=== PATIENT | female | born 1945 | race Caucasian/White ===

== ENCOUNTER 2021-12-09 10:40 | Inpatient (IN) ==
[2021-12-09 11:51] LABS: Basophils # (auto) 0.04 K/uL (0-0.2); Basophils % (auto) 0.4 %; Eosinophils # (auto) 0.04 K/uL (0-0.50); Eosinophils % (auto) 0.4 %; Hematocrit (blood only) 41.3 % (34.1-44.9); Hemoglobin 14.3 g/dl (12.0-16.0); Immature Granulocytes # (auto) 0.03 K/uL (0.00-0.02); Immature Granulocytes % (auto) 0.3 %; Lymphocytes # (auto) 1.17 K/uL (1.2-3.4); Lymphocytes % (auto) 10.3 %; Mean Corpuscular Hemoglobin 31.9 pg (25.0-34.0); Mean Corpuscular Hgb Conc 34.6 g/dL (32.0-36.0); Mean Corpuscular Volume 92.2 fL (80.0-100.0); Mean Platelet Volume 10.2 fL (9.4-12.3); Monocytes # (auto) 0.68 K/uL (0.24-0.82); Neutrophils # (auto) 9.38 K/uL (1.4-6.5); Neutrophils % (auto) 82.6 %; Platelet Count 303 K/uL (130-400); RDW Coefficient of Variation 12.1 % (11.5-14.5); RDW Standard Deviation 41.2 fL (36.4-46.3); Red Blood Count 4.48 M/uL (3.93-5.22); White Blood Count 11.34 K/ul (4.8-10.8)
[2021-12-09 12:07] LABS: INR 1.1 (0.9-1.1); Partial Thromboplastin Ratio 1.1; Partial Thromboplastin Time 29.1 Seconds (21.0-31.0); Prothrombin Time 11.9 Seconds (9.0-12.0)
[2021-12-09 12:12] LABS: Albumin Globulin Ratio 1.3 (0.9-2); Albumin Level 4.1 gm/dl (3.4-5.0); BUN Creatinine Ratio 18.7 (10-20); Calcium 9.8 mg/dl (8.5-10.1); Creatinine Clr Calc Pharmacy 61.7 ml/min; Est GFR (African American) 89.1 ml/min; Est GFR (Non-African American) 76.9 ml/min; Globulin 3.2 gm/dl (2.5-4.0); Magnesium 1.6 mg/dl (1.7-2.4); Potassium 3.9 mmol/L (3.5-5.1); Total Protein 7.3 gm/dl (6.0-8.3)
--- NOTE | 2021-12-09 12:44 | Emergency Department Note ---
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 She does follow-up with Dr. Cespedes and she said the start around 2 weeks ago she was started on clindamycin and was getting better and then it started getting worse they started on it more clindamycin it is gotten increasingly red and warm and they sent her to the ER no fever at home but she has had some chills. Denies nausea no chest pain no injury no numbness or weakness. She says she gets this about 4 times a year sometimes she has to be admitted to the hospital she does have several antibiotic allergies including sulfa, cephalosporins and penicillin. Home Medications Medication Instructions Recorded Confirmed Type amlodipine 5 mg tablet 5 mg PO DAILY 12/09/21 12/09/21 History ascorbic acid (vitamin C) 500 mg 500 mg PO DAILY 12/09/21 12/09/21 History tablet (Vitamin C) cholecalciferol (vitamin D3) 10 10 mcg PO DAILY 12/09/21 12/09/21 History mcg (400 unit) capsule (Vitamin D3) clindamycin HCl 300 mg capsule 300 mg PO QID 12/09/21 12/09/21 History colestipol 1 gram tablet 2 g PO BID 12/09/21 12/09/21 History meclizine 25 mg tablet 25 mg PO TID PRN Dizziness 12/09/21 12/09/21 History naproxen 500 mg tablet 500 mg PO BID 12/09/21 12/09/21 History omeprazole 20 mg capsule,delayed 20 mg PO BID 12/09/21 12/09/21 History release rosuvastatin 5 mg tablet 5 mg PO DAILY 12/09/21 12/09/21 History Allergies Allergy/AdvReac Type Severity Reaction Status Date / Time Sulfa (Sulfonamide Allergy Mild Unknown rxn Verified 05/24/10 07:39 Antibiotics) Cephalosporins Allergy Unknown Verified 03/28/09 04:25 Penicillins Allergy Unknown Verified 03/28/09 04:25 oxycodone AdvReac Mild NAUSEA Verified 03/28/09 04:25 Past Med/Surg History Medical History (Updated 12/09/21 @ 16:04 by Everett Venegas MD) Breast cancer Chronic acquired lymphedema Dyslipidemia GERD (gastroesophageal reflux disease) HTN (hypertension) IBS (irritable bowel syndrome) Vertigo Surgical History (Updated 12/09/21 @ 14:16 by Christina Patterson PA-C) H/O total mastectomy of left breast History of cholecystectomy History of lymph node excision History of reconstruction of both breasts History of total left knee replacement History of tubal ligation Hx of total mastectomy of right breast Family History (Updated 12/09/21 @ 14:18 by Christina Patterson PA-C) Aunt Breast cancer Other Coronary heart disease Social History (Updated 12/09/21 @ 14:18 by Christina Patterson PA-C) Smoking Status: Former smoker Hx Alcohol Use: Yes Alcohol type: wine Alcohol Intake Frequency: Monthly or Less Hx Substance Use: No Preferred Language: Korean Feels Safe at Home: Yes Immunizations: Past medical historybreast cancer she had a bilateral mastectomy and chemo. She had lymph node dissections as well. She has been in remission for 27 years. Since then she has had problems with edema and cellulitis in her right upper extremity. Increased cholesterol. Denies diabetes or cardiac disease or any blood thinner use Review of Systems A total of 10 systems reviewed and were otherwise negative Physical Exam Vital Signs Vital Signs - 24 hr 12/09/21 10:52 12/09/21 13:52 12/09/21 13:52 Temperature 36.5 C Temperature Source Oral Pulse Rate 93 H Pulse Rate [Right Finger] 81 Pulse Rhythm Regular Pulse Rhythm [Right Finger] Regular Pulse Strength Normal Pulse Strength [Right Finger] Normal Respiratory Rate 18 18 Respiratory Effort / Characteristics Non-Labored Spontaneous Non-Labored Respiratory Depth Normal Normal Respiratory Pattern Regular Regular Blood Pressure 158/79 H Blood Pressure [Right Arm] 125/64 Blood Pressure Mean 105 Blood Pressure Mean [Right Arm] 84 Blood Pressure Position Sitting Blood Pressure Position [Right Arm] Lying Pulse Oximetry 98 97 Oxygen Delivery Method Room Air Room Air Room Air Sepsis Recent Fever Within 48 Hours No Sepsis New/Unexplained Change in Mental Status No Sepsis Action Taken by Nursing No Action Required 12/09/21 13:52 12/09/21 15:51 Temperature Temperature Source Pulse Rate Pulse Rate [Right Finger] 84 Pulse Rhythm Pulse Rhythm [Right Finger] Pulse Strength Pulse Strength [Right Finger] Respiratory Rate 18 Respiratory Effort / Characteristics Respiratory Depth Respiratory Pattern Blood Pressure Blood Pressure [Right Arm] 130/69 Blood Pressure Mean Blood Pressure Mean [Right Arm] 89 Blood Pressure Position Blood Pressure Position [Right Arm] Sitting Pulse Oximetry 98 Oxygen Delivery Method Room Air Sepsis Recent Fever Within 48 Hours Sepsis New/Unexplained Change in Mental Status Sepsis Action Taken by Nursing General: Well developed well nourished [id number] middle-aged female who appears in no acute distress, breathing comfortably on room air. Normal speech HEENT: Normal cephalic atraumatic. Pupils are equal round and reactive to light. Extraocular movements are intact. Oropharynx is pink with moist mucous membranes. No swelling of the mouth lips or tongue. Neck: Supple with a midline trachea. No meningeal signs or stiffness, no JVD or bruits. No Stridor. Chest: Clear to auscultation bilaterally. No wheezes or rhonchi. No increased work of breathing. Heart: Regular rate and rhythm without murmurs or gallops. Abdomen: Soft nontender, nondistended without rebound guarding or rigidity. Extremities: Lower extremities have no cyanosis clubbing or edema. No calf tenderness or assymetry. In the upper extremities her right arm is red and swollen compared to the left it is diffuse starting of the hand all the way up to almost the shoulder. It is mildly warm as well. No crepitus. Normal motor and sensation Spine/Back. Non tender to palpation. No CVA tenderness Skin: Good turgor without rashes. Neurologic exam: Cranial nerves two through 12 are intact. Motor and sensation are intact and symmetrical throughout. Course Administered Medications Enoxaparin Sodium (Enoxaparin Inj 40 Mg/0.4 Ml Syr) 40 mg SQ Q24H [facility] Stop: 01/08/22 13:59 Last Admin: 12/09/21 15:00 Dose: 40 mg Documented By: EVIE Magnesium Sulfate/Dextrose (Magnesium Sulfate / D5w) 1 gm in 100 mls @ 50 mls/hr IV ONE ONE Stop: 12/09/21 16:33 Last Admin: 12/09/21 15:00 Dose: 50 mls/hr Documented By: EVIE Discontinued Medications Amlodipine Besylate (Amlodipine Besylate 5 Mg Tab) 5 mg PO NOW ONE Stop: 12/09/21 14:01 Last Admin: 12/09/21 15:00 Dose: 5 mg Documented By: EVIE Vancomycin HCl 1,500 mg/ (Sodium Chloride) 530 mls @ 200 mls/hr IV NOW STA Stop: 12/09/21 15:41 Last Admin: 12/09/21 13:46 Dose: 200 mls/hr Documented By: CALEB Medical Decision Making Differential Diagnosis Cellulitis, sepsis, failed outpatient therapy, complication related to breast cancer, DVT, electrolyte or metabolic abnormality, COVID Medical Records Attestation: I reviewed the patient's medical records. Home Medications Current Medication List: was personally reviewed by me Laboratory Data Attestation: I reviewed the patient's lab results. Result diagrams: 12/09/21 11:27 12/09/21 11:27 Lab Results 12/09/21 12/09/21 12/09/21 Range/Units 11:27 11:27 11:27 WBC 11.34 H (4.8-10.8) K/ul RBC 4.48 (3.93-5.22) M/uL Hgb 14.3 (12.0-16.0) g/dl Hct 41.3 (34.1-44.9) % MCV 92.2 (80.0-100.0) fL MCH 31.9 (25.0-34.0) pg MCHC 34.6 (32.0-36.0) g/dL RDW Std Deviation 41.2 (36.4-46.3) fL RDW Coeff of Ernestina 12.1 (11.5-14.5) % Plt Count 303 (130-400) K/uL MPV 10.2 (9.4-12.3) fL Immature Gran % (Auto) 0.3 % Neut % (Auto) 82.6 % Lymph % (Auto) 10.3 % [place] % (Auto) 6.0 % Eos % (Auto) 0.4 % Baso % (Auto) 0.4 % Neut # (Auto) 9.38 H (1.4-6.5) K/uL Lymph # (Auto) 1.17 L (1.2-3.4) K/uL [place] # (Auto) 0.68 (0.24-0.82) K/uL Eos # (Auto) 0.04 (0-0.50) K/uL Baso # (Auto) 0.04 (0-0.2) K/uL Immature Gran # (Auto) 0.03 H (0.00-0.02) K/uL PT 11.9 (9.0-12.0) Seconds INR 1.1 (0.9-1.1) APTT 29.1 (21.0-31.0) Seconds PTT Ratio 1.1 Sodium 138 (136-145) mmol/L Potassium 3.9 (3.5-5.1) mmol/L Chloride 106 (98-107) mmol/L Carbon Dioxide 24 (21-32) mmol/L Anion Gap 8 (3-11) BUN 14 (6-23) mg/dl Creatinine 0.75 (0.6-1.2) mg/dl Est Cr Clr Drug Dosing 61.7 ml/min Est GFR ( Amer) 89.1 ml/min Est GFR (Non-Af Amer) 76.9 ml/min BUN/Creatinine Ratio 18.7 (10-20) Glucose 93 (70-99(Fasting)) mg/dl Lactate (0.4-2.0) mmol/L Calcium 9.8 (8.5-10.1) mg/dl Magnesium 1.6 L (1.7-2.4) mg/dl Total Bilirubin 1.0 (0.2-1.0) mg/dl AST 12 L (13-39) U/L ALT 12 (7-52) U/L Alkaline Phosphatase 60 (34-104) U/L Troponin I High Sens (0-14) pg/ml Total Protein 7.3 (6.0-8.3) gm/dl Albumin 4.1 (3.4-5.0) gm/dl Globulin 3.2 (2.5-4.0) gm/dl Albumin/Globulin Ratio 1.3 (0.9-2) Procalcitonin (0-0.5) ng/ml SARS-CoV-2, RNA, NAAT (NEGATIVE) 12/09/21 12/09/21 12/09/21 Range/Units 11:27 11:27 12:58 WBC (4.8-10.8) K/ul RBC (3.93-5.22) M/uL Hgb (12.0-16.0) g/dl Hct (34.1-44.9) % MCV (80.0-100.0) fL MCH (25.0-34.0) pg MCHC (32.0-36.0) g/dL RDW Std Deviation (36.4-46.3) fL RDW Coeff of Ernestina (11.5-14.5) % Plt Count (130-400) K/uL MPV (9.4-12.3) fL Immature Gran % (Auto) % Neut % (Auto) % Lymph % (Auto) % [place] % (Auto) % Eos % (Auto) % Baso % (Auto) % Neut # (Auto) (1.4-6.5) K/uL Lymph # (Auto) (1.2-3.4) K/uL [place] # (Auto) (0.24-0.82) K/uL Eos # (Auto) (0-0.50) K/uL Baso # (Auto) (0-0.2) K/uL Immature Gran # (Auto) (0.00-0.02) K/uL PT (9.0-12.0) Seconds INR (0.9-1.1) APTT (21.0-31.0) Seconds PTT Ratio Sodium (136-145) mmol/L Potassium (3.5-5.1) mmol/L Chloride (98-107) mmol/L Carbon Dioxide (21-32) mmol/L Anion Gap (3-11) BUN (6-23) mg/dl Creatinine (0.6-1.2) mg/dl Est Cr Clr Drug Dosing ml/min Est GFR ( Amer) ml/min Est GFR (Non-Af Amer) ml/min BUN/Creatinine Ratio (10-20) Glucose (70-99(Fasting)) mg/dl Lactate 1.1 (0.4-2.0) mmol/L Calcium (8.5-10.1) mg/dl Magnesium (1.7-2.4) mg/dl Total Bilirubin (0.2-1.0) mg/dl AST (13-39) U/L ALT (7-52) U/L Alkaline Phosphatase (34-104) U/L Troponin I High Sens 2.5 (0-14) pg/ml Total Protein (6.0-8.3) gm/dl Albumin (3.4-5.0) gm/dl Globulin (2.5-4.0) gm/dl Albumin/Globulin Ratio (0.9-2) Procalcitonin < 0.05 (0-0.5) ng/ml SARS-CoV-2, RNA, NAAT (NEGATIVE) 12/09/21 Range/Units 13:50 WBC (4.8-10.8) K/ul RBC (3.93-5.22) M/uL Hgb (12.0-16.0) g/dl Hct (34.1-44.9) % MCV (80.0-100.0) fL MCH (25.0-34.0) pg MCHC (32.0-36.0) g/dL RDW Std Deviation (36.4-46.3) fL RDW Coeff of Ernestina (11.5-14.5) % Plt Count (130-400) K/uL MPV (9.4-12.3) fL Immature Gran % (Auto) % Neut % (Auto) % Lymph % (Auto) % [place] % (Auto) % Eos % (Auto) % Baso % (Auto) % Neut # (Auto) (1.4-6.5) K/uL Lymph # (Auto) (1.2-3.4) K/uL [place] # (Auto) (0.24-0.82) K/uL Eos # (Auto) (0-0.50) K/uL Baso # (Auto) (0-0.2) K/uL Immature Gran # (Auto) (0.00-0.02) K/uL PT (9.0-12.0) Seconds INR (0.9-1.1) APTT (21.0-31.0) Seconds PTT Ratio Sodium (136-145) mmol/L Potassium (3.5-5.1) mmol/L Chloride (98-107) mmol/L Carbon Dioxide (21-32) mmol/L Anion Gap (3-11) BUN (6-23) mg/dl Creatinine (0.6-1.2) mg/dl Est Cr Clr Drug Dosing ml/min Est GFR ( Amer) ml/min Est GFR (Non-Af Amer) ml/min BUN/Creatinine Ratio (10-20) Glucose (70-99(Fasting)) mg/dl Lactate (0.4-2.0) mmol/L Calcium (8.5-10.1) mg/dl Magnesium (1.7-2.4) mg/dl Total Bilirubin (0.2-1.0) mg/dl AST (13-39) U/L ALT (7-52) U/L Alkaline Phosphatase (34-104) U/L Troponin I High Sens (0-14) pg/ml Total Protein (6.0-8.3) gm/dl Albumin (3.4-5.0) gm/dl Globulin (2.5-4.0) gm/dl Albumin/Globulin Ratio (0.9-2) Procalcitonin (0-0.5) ng/ml SARS-CoV-2, RNA, NAAT NEGATIVE (NEGATIVE) Imaging Data Radiologist's Impression: Venous Doppler Study 12/09/21 13:45 ULTRASOUND RIGHT UPPER EXTREMITY VENOUS CLINICAL HISTORY: Right upper extremity erythema. Lymphedema. COMPARISON STUDY: Right upper extremity venous ultrasound dated 05/20/2012. TECHNIQUE: Real-time, grayscale, and color Doppler sonography of the deep veins of the right upper extremity is performed. Compression and augmentation were utilized. FINDINGS: There is no sonographic evidence of deep venous thrombosis identified in the right upper extremity. The right internal jugular, axillary, and brachial veins are patent and normally compressible. Normal venous waveforms and augmentation are seen within the right subclavian vein. The cephalic and basilic veins are clear. The visualized radial and ulnar veins are patent. A mildly enlarged right supraclavicular lymph node measures 1.6 x 1.2 x 1.5 cm. IMPRESSION: 1. There is no sonographic evidence of deep venous thrombosis identified in the right upper extremity. 2. There is a mildly enlarged right supraclavicular lymph node. This is indeterminate but similar to the 2013 examination. ACT 112: Negative or not required by law. Electronically signed by: Trip Barnes M.D. 12/09/2021 3:58 PM ECG Data Attestation: I personally reviewed and interpreted this ECG as follows: Indication: + weakness Rate (beats per minute): 93 Rhythm: + normal sinus ECG Intervals/blocks: + Normal QRS, + Normal QT and + Normal NH ECG [place]: + Normal ECG ST segments: + Normal ST segments ECG Findings: no PACs or no PVCs Comparison ECG Date: from (06/05/2017) Change: no significant change MDM Narrative This patient comes in as described above. She has recurrent cellulitis that has failed outpatient therapy her right arm is red and swollen. She is afebrile here but has had some chills at home. Blood cultures were obtained. Her initial white count and procalcitonin are significantly elevated she has no significant lecture light or metabolic abnormalities. EKG shows no ischemic changes or ectopy. She was reassessed frequently. She was started on IV antibiotics. Our ED pharmacist Ole has reviewed the patient and her allergies and previous medications and we have opted to give her vancomycin. Her lactic a giovanni is not elevated. Her COVID testing was negative. I have consulted the [facility] Hospitalist to see the patient in ER for further treatment and evaluation IV antibiotics. Continuous shelter monitor: Orders placed in EMR for continuous heart monitor. Upon my interpretation patient noted to be normal sinus rhythm with a rate of 80. Impression & Plan Cellulitis of right upper extremity, Hypomagnesemia, Chronic acquired lymphedema, Lab test negative for COVID-19 virus Discharge Plan Visit Data Chief Complaint: Arm Pain Stated Complaint: CELLULITIS R ARM ED Provider: Everett Venegas Discharge Problem: Cellulitis of right upper extremity, Hypomagnesemia, Chronic acquired lymphedema, Lab test negative for COVID-19 virus Forms Stand Alone Forms: My [facility] Prescriptions Prescriptions: No Action clindamycin HCl 300 mg capsule 300 mg PO QID amlodipine 5 mg tablet 5 mg PO DAILY ascorbic acid (vitamin C) [Vitamin C] 500 mg Tablet 500 mg PO DAILY meclizine 25 mg tablet 25 mg PO TID PRN (Reason: Dizziness) omeprazole 20 mg capsule,delayed release(DR/EC) 20 mg PO BID colestipol 1 gram tablet 2 g PO BID naproxen 500 mg tablet 500 mg PO BID cholecalciferol (vitamin D3) [Vitamin D3] 10 mcg (400 unit) Capsule 10 mcg PO DAILY rosuvastatin 5 mg tablet 5 mg PO DAILY Referrals Referrals: Rogelio Cespedes DO [Primary Care Provider] -
[2021-12-09] MEDS ORDERED: VANCOMYCIN HCL 1,500 MG in SODIUM CHLORIDE 0.9% 500 ML IV STA (13:03)
--- NOTE | 2021-12-09 13:45 | Electrocardiogram Report ---
Test Reason : Blood Pressure : / mmHG Vent. Rate : 093 BPM Atrial Rate : 093 BPM P-R Int : 172 ms QRS Dur : 072 ms QT Int : 368 ms P-R-T Axes : 057 045 037 degrees QTc Int : 457 ms Normal sinus rhythm Normal ECG When compared with ECG of 05-JUN-2014 16:04, No significant change was found Confirmed by Pan Davis ([id number]) on 12/09/2021 1:44:57 PM Referred By: Confirmed By:Pan Davis
--- NOTE | 2021-12-09 13:49 | History & Physical Report ---
Date of Service December 09, 2021 Assessment & Plan (1) Cellulitis of right upper extremity: Plan: Patient is 76 y/o F with PMH HTN, dyslipidemia, GERD, IBS, breast cancer s/p chemotherapy, mastectomy, bilateral axilla lymph node excision in 1995, chronic bilateral upper extremity lymphedema presented to ER with c/o RUE erythema x 2 weeks initial improvement with Clindamycin however last night chills and entire RUE erythema and warmth. No known h/o MRSA In ER afebrile, vitals stable. WBC:11. Normal lactate and procalcitonin. In ER was started on vancomycin blood cultures pending RUE venous doppler pending ?cellulitis vs stasis dermatitis with chronic lymphedema as patient without significant tenderness 14 day course Clindamycin with initial improvement then reported onset of increased erythema and chills last night. With recent antibiotic use and allergy profile will continue vancomycin and monitor CBC, BMP in am (2) Hypomagnesemia: Plan: magnesium: 1.6 Replace and monitor (3) HTN (hypertension): Plan: BP in ER elevated. Missed today's home BP meds Continue amlodipine (4) Dyslipidemia: Plan: Continue rosuvastatin (5) Breast cancer: (6) Chronic acquired lymphedema: Plan: 1995. S/P chemo, bilateral mastectomy, bilateral axillary lymph node excision Chronic BUE lymphedema Reports tried compression wraps and lymphedema pump in past with minimal relief (7) IBS (irritable bowel syndrome): Plan: Continue colestipol (8) GERD (gastroesophageal reflux disease): Plan: Continue PPI DVT Prophylaxis Lovenox SQ Full Code as per discussion with pt Follows with Dr Cespedes for routine care Pt was seen and care coordinated with Dr Valles. See addendum History of Present Illness Chief Complaint: Right arm redness Primary Care Provider: Rogelio Cespedes, Patient is 76 y/o F with PMH HTN, dyslipidemia, GERD, IBS, breast cancer s/p chemotherapy, mastectomy, bilateral axilla lymphnode excision in 1995, chronic bilateral upper extremity lymphedema presented to ER with c/o RUE erythema. She reports history recurrent cellulitis to RUE. Reports erythema to RUE in March and May 2021 and was treated with Clindamycin with relief. Patient states 2 weeks ago noticed right upper arm erythema and started Clindamycin and completed 7 day course with improvement with only a very small area of erythema remaining to right upper arm. Her PCP called in another course of Clindamycin which she started on 12/02/21. She felt symptoms were improving however last night started with chills. Did not take temperature. Noticed entire right arm erythema. Baseline edema and denies any increased edema. Has chronic "heaviness" sensation of RUE but denies any significant discomfort. Denies any open areas, known injury or trauma or discharge from area. She did notice her right thumb had crack in skin today, she is unsure when this occurred and doesn't recall cutting herself. Her skin is very dry. Denies any known history MRSA. Denies history DVT. Denies diaphoresis, N/V/D/C, HERR, dizziness, syncope, vision changes, neck pain, CP, SOB, palpitations, cough, sore throat, choking, otalgia, rhinorrhea, abdominal pain, paresthesias, weakness, extremity weakness, other rashes, urinary symptoms. In ER afebrile, vitals stable. Mild leukocytosis. Was started on vancomycin. Allergies Allergy/AdvReac Type Severity Reaction Status Date / Time Sulfa (Sulfonamide Allergy Mild Unknown rxn Verified 05/24/10 07:39 Antibiotics) Cephalosporins Allergy Unknown Verified 03/28/09 04:25 Penicillins Allergy Unknown Verified 03/28/09 04:25 oxycodone AdvReac Mild NAUSEA Verified 03/28/09 04:25 Home Medications Medication Instructions Recorded Confirmed Type amlodipine 5 mg tablet 5 mg PO DAILY 12/09/21 12/09/21 History ascorbic acid (vitamin C) 500 mg 500 mg PO DAILY 12/09/21 12/09/21 History tablet (Vitamin C) cholecalciferol (vitamin D3) 10 10 mcg PO DAILY 12/09/21 12/09/21 History mcg (400 unit) capsule (Vitamin D3) clindamycin HCl 300 mg capsule 300 mg PO QID 12/09/21 12/09/21 History colestipol 1 gram tablet 2 g PO BID 12/09/21 12/09/21 History meclizine 25 mg tablet 25 mg PO TID PRN Dizziness 12/09/21 12/09/21 History naproxen 500 mg tablet 500 mg PO BID 12/09/21 12/09/21 History omeprazole 20 mg capsule,delayed 20 mg PO BID 12/09/21 12/09/21 History release rosuvastatin 5 mg tablet 5 mg PO DAILY 12/09/21 12/09/21 History Past Med/Surg History Medical History (Updated 12/09/21 @ 16:04 by Everett Venegas MD) Breast cancer Chronic acquired lymphedema Dyslipidemia GERD (gastroesophageal reflux disease) HTN (hypertension) IBS (irritable bowel syndrome) Vertigo Surgical History (Updated 12/09/21 @ 14:16 by Christina Patterson PA-C) H/O total mastectomy of left breast History of cholecystectomy History of lymph node excision History of reconstruction of both breasts History of total left knee replacement History of tubal ligation Hx of total mastectomy of right breast Family History (Updated 12/09/21 @ 14:18 by Christina Patterson PA-C) Aunt Breast cancer Other Coronary heart disease Social History (Updated 12/09/21 @ 14:18 by Christina Patterson PA-C) Smoking Status: Former smoker Hx Alcohol Use: Yes Alcohol type: wine Alcohol Intake Frequency: Monthly or Less Hx Substance Use: No Preferred Language: Khmer Hatchery Worker Required: No Beliefs That Will Affect Care: None Current Living Situation: Spouse Other Information That Helps Us Care for You: No Feels Safe at Home: Yes Assistive Devices: Glasses and Hearing Aid - Bilateral Review of Systems Review of Systems: All systems reviewed & are unremarkable except as noted in HPI & below Physical Exam Physical Exam: General: no distress, overweight Head: normocephalic, atraumatic Eyes: conjunctiva non-injected, anicteric ENT: normal inspection external ears, nose, mucous membranes moist Neck: supple, trachea midline Lungs: clear, no respiratory distress, no wheezing/rhonchi/rales CV: RRR, no murmur, no pretibial edema Abd: protuberant, normal BS, soft, non-tender Ext: no cyanosis, no calf tenderness; Bilateral upper extremities with chronic lymphedema. RUE: +diffuse dry skin, +erythema from proximal arm extending to wrist, +warmth to proximal arm, no significant tenderness to palpation. right thumb with noted dry skin with small fissure without discharge Neuro: A&O x 3, no focal deficits noted, normal affect Skin: as above in extremities, otherwise warm, dry Results & Data Results & Data ([facility]) Vital Signs (Past 12 Hours) Vital Signs Temp Pulse Resp BP Pulse Ox O2 Del Method 12/09/21 10:52 36.5 C 93 H 18 158/79 H 98 Room Air Laboratory Results Short CBC 12/09/21 Range/Units 11:27 WBC 11.34 H (4.8-10.8) K/ul Hgb 14.3 (12.0-16.0) g/dl Hct 41.3 (34.1-44.9) % Plt Count 303 (130-400) K/uL BMP 12/09/21 11:27 Sodium 138 Potassium 3.9 Chloride 106 Carbon Dioxide 24 BUN 14 Creatinine 0.75 Glucose 93 Calcium 9.8 Liver Function 12/09/21 Range/Units 11:27 Total Bilirubin 1.0 (0.2-1.0) mg/dl AST 12 L (13-39) U/L ALT 12 (7-52) U/L Alkaline Phosphatase 60 (34-104) U/L Albumin 4.1 (3.4-5.0) gm/dl Supervising Physician Co-Signing Physician Notes 76-year-old female with history of breast cancer status postchemotherapy and mastectomy with chronic right upper extremity lymphedema. She had a good resolution of erythema except 1 strand of pink around her shoulder after the first course of clindamycin. Then did well with the second course of clindamycin. However, yesterday she had a flareup of bright red skin and swelling and warmth as well as chills suggestive of repeat cellulitis infection. She does have a scrape that is small at the fingertip on her right hand and reports dry skin. She does report chewing on this dry skin. Overall does not have any sepsis and looks good clinically. Right upper extremity as described above with redness that extends to just distal to the deltoid muscle. Erythema and swelling is circumferential around the entire right upper extremity. Hand is not swollen but is also affected with some redness. There is no area of fluctuance. Heart and lung exam is normal. Patient is ambulating around the room. Work-up including CBC reveals a white blood cell count of 11 K with left shift. Coags and BMP are normal. Magnesium 1.6 is being replaced. Procalcitonin is negative and COVID is negative. Lactate is 1.1. She underwent a venous Doppler of the right upper extremity with no sonographic evidence of DVT and a mild right supraclavicular lymph node which is expected in this situation. Agree with management plan of starting vancomycin IV with her allergy profile. Will monitor for clinical response and transition to oral therapy in the next couple of days. DO Hai
[2021-12-09] MEDS ORDERED: amLODIPine BESYLATE 5 MG TAB PO ONE (14:00)
[2021-12-09] MEDS ORDERED: MAGNESIUM SULFATE / D5W 1 GM/100 ML BAG IV ONE (14:34)
[2021-12-09] MEDS: ENOXAPARIN INJ 40 MG/0.4 ML SYR SQ SCH (15:00)
--- NOTE | 2021-12-09 15:59 | Ultrasound Report ---
ULTRASOUND RIGHT UPPER EXTREMITY VENOUS CLINICAL HISTORY: Right upper extremity erythema. Lymphedema. COMPARISON STUDY: Right upper extremity venous ultrasound dated 05/20/2012. TECHNIQUE: Real-time, grayscale, and color Doppler sonography of the deep veins of the right upper ex tremity is performed. Compression and augmentation were utilized. FINDINGS: There is no sonographic evidence of deep venous thrombosis identified in the right upper ex tremity. The right internal jugular, axillary, and brachial veins are patent and normally compressibl e. Normal venous waveforms and augmentation are seen within the right subclavian vein. The cephalic a nd basilic veins are clear. The visualized radial and ulnar veins are patent. A mildly enlarged right supraclavicular lymph node measures 1.6 x 1.2 x 1.5 cm. IMPRESSION: 1. There is no sonographic evidence of deep venous thrombosis identified in the right upper extremity . 2. There is a mildly enlarged right supraclavicular lymph node. This is indeterminate but similar to the 2013 examination. ACT 112: Negative or not required by law. Electronically signed by: Trip Barnes M.D. 12/09/2021 3:58 PM
[2021-12-09] MEDS ORDERED: ACETAMINOPHEN 325 MG TAB PO PRN (17:00)
[2021-12-09] MEDS ORDERED: VANCOMYCIN CONSULT ACTIVE PRN (17:00)
[2021-12-09] MEDS ORDERED: ONDANSETRON INJ 2 MG/ML 2 ML VIAL IV PRN (17:00)
[2021-12-09] MEDS ORDERED: MECLIZINE HCL 25 MG TAB PO PRN (17:00)
[2021-12-09] MEDS ORDERED: VANCOMYCIN HCL 1,250 MG in SODIUM CHLORIDE 0.9% 500 ML IV SCH (17:00)
[2021-12-09] MEDS: COLESTIPOL HCL 1 GM TAB PO SCH (21:55)
[2021-12-09] MEDS: PANTOprazole 40 MG TAB PO SCH (21:55)
[2021-12-09] MEDS: NAPROXEN 250 MG TAB PO SCH (21:57)
[2021-12-10] MEDS: VANCOMYCIN HCL 750 MG in SODIUM CHLORIDE 0.9% 250 ML IV SCH ×2 (00:36→12:24)
[2021-12-10 07:35] LABS: Appearance Urine Clear (Clear); Bacteria Urine Automated Negative (Negative); Bilirubin Urine Negative (Negative); Blood Urine Negative (Negative); Color Urine Yellow; Epithelial Cell Urine Auto >30 /lpf (0-5); Glucose Urine UA Negative (Negative); Ketones Urine Negative (Negative); Leukocyte Esterase Urine Trace (Negative); Nitrite Urine Negative (Negative); Protein Urine Negative (Negative); RBC Urine Automated 0-4 /hpf (0-4); Specific Gravity Urine 1.014 (1.000-1.030); Urobilinogen Urine Negative (Negative)
[2021-12-10] MEDS: NAPROXEN 250 MG TAB PO SCH ×2 (08:18→20:19)
[2021-12-10] MEDS: ROSUVASTATIN CALCIUM 5 MG TAB PO SCH (08:18)
[2021-12-10] MEDS: PANTOprazole 40 MG TAB PO SCH ×2 (08:19→20:20)
[2021-12-10] MEDS: amLODIPine BESYLATE 5 MG TAB PO SCH (08:19)
[2021-12-10 08:36] LABS: BUN Creatinine Ratio 22.2 (10-20); Calcium 9.7 mg/dl (8.5-10.1); Creatinine Clr Calc Pharmacy 73.5 ml/min; Est GFR (African American) 100.3 ml/min; Est GFR (Non-African American) 86.5 ml/min; Magnesium 1.7 mg/dl (1.7-2.4)
[2021-12-10 09:53] LABS: Basophils # (auto) 0.05 K/uL (0-0.2); Basophils % (auto) 0.8 %; Eosinophils % (auto) 3.2 %; Hematocrit (blood only) 39.9 % (34.1-44.9); Hemoglobin 13.6 g/dl (12.0-16.0); Immature Granulocytes # (auto) 0.02 K/uL (0.00-0.02); Immature Granulocytes % (auto) 0.3 %; Lymphocytes # (auto) 1.24 K/uL (1.2-3.4); Lymphocytes % (auto) 19.7 %; Mean Corpuscular Hemoglobin 31.9 pg (25.0-34.0); Mean Corpuscular Hgb Conc 34.1 g/dL (32.0-36.0); Mean Corpuscular Volume 93.7 fL (80.0-100.0); Mean Platelet Volume 10.7 fL (9.4-12.3); Monocytes # (auto) 0.57 K/uL (0.24-0.82); Monocytes % (auto) 9.1 %; Neutrophils # (auto) 4.21 K/uL (1.4-6.5); Neutrophils % (auto) 66.9 %; Platelet Count 270 K/uL (130-400); RDW Coefficient of Variation 12.2 % (11.5-14.5); RDW Standard Deviation 42.2 fL (36.4-46.3); Red Blood Count 4.26 M/uL (3.93-5.22); White Blood Count 6.29 K/ul (4.8-10.8)
[2021-12-10] MEDS: COLESTIPOL HCL 1 GM TAB PO SCH ×2 (11:50→20:20)
--- NOTE | 2021-12-10 12:49 | Pharmacy Report ---
Pharmacy PK ABX Note - Date of Service December 10, 2021 - Assessment and Plan Assessment * Ms Snyder is a 76 year old F receiving Vancomycin for treatment of RUE cellulitis. * PMH is significant for hx of breast CA s/p chemo/mastectomy/bilateral axilla lymph node excision (1995), chronic b/l UE lymphedema * Pt completed 14 days of therapy with Clindamycin as an outpatient. Initially, she had some improvement, however she reports onset of increased erythema and chills, for which she presented to the ER. * Blood cx pending. PCT unremarkable. Plan Vancomycin * Loading dose: 1500 mg IV x 1 * Maintenance dose: 750 mg IV every 12 hours * Regimen is predicted to achieve target AUC/EARL of 400-600 mg/L.hr * Random level ordered for tomorrow morning. Pharmacy will continue to follow and will adjust dose/frequency as necessary. Thank you. Pharmacy has transitioned to AUC monitoring for vancomycin. AUC/EARL is the preferred PK/PD target and is associated with decreased risk of nephrotoxicity compared to traditional trough targets.
[2021-12-10] MEDS: ENOXAPARIN INJ 40 MG/0.4 ML SYR SQ SCH (13:59)
--- NOTE | 2021-12-10 15:30 | Hospitalist Progress Note ---
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 No known h/o MRSA. She is being managed for the following: (1) Cellulitis of right upper extremity: In ER afebrile, vitals stable. WBC:11K. Normal lactate and procalcitonin. In ER was started on vancomycin admitting blood cultures pending RUE venous doppler negative for dvt Improving RU E pain and erythema per patient 14 day course Clindamycin with initial improvement then reported onset of increased erythema and chills last night. With recent antibiotic use and allergy profile will continue vancomycin, plan for doxycycline upon discharge. (2) Hypomagnesemia: Plan: Admitting magnesium: 1.6 Replace and monitor Other chronic medical conditions: HTN/HLD/breast cancer/chronic acquired lymphedema BUE [reports tried compression wraps and lymphedema pump in the past with minimal relief]/IBS/GERD -->> continue with/resume home meds as and when able. DVT prophylaxis: Lovenox subcu Full code Admission and Anticipated Discharge Date Admission Date: December 09, 2021 Subjective Patient seen and examined at bedside as a follow-up of cellulitis of right upper extremity. Patient was lying in bed, on room air, NAD, denies any new acute event overnight, reports eating okay and moving bowels okay, reports decreasing pain and erythema of right upper extremity, denies any fever or chills or sore throat or cough or chest pain or belly pain or other review of symptoms. Physical Exam Physical Exam: GENERAL: Alert and oriented x3. NAD, on RA. HEENT: No pallor, no icterus. Pupils equal, round and reactive to light. Oral mucosa moist. NECK: No JVD, no neck masses. HEART: S1 and S2 heard. Regular rate and rhythm. No murmur, no gallop. RESPIRATORY SYSTEM: Normal AP diameter. No accessory muscle use. No wheezing, no crackles. ABDOMEN: Soft, bowel sounds present, nontender, no distention. CENTRAL NERVOUS SYSTEM: No facial droop. Speech is clear. Obeys simple comman ds. Moves extremities. EXTREMITIES: No edema, no erythema seen. RUE w/ chronic lymphedema, arm w/ some erythema (pt reports improving erythema of forearm), non tender, minimal warmth. Results & Data Results & Data ([facility]) Vital Signs (Past 12 Hours) Vital Signs Temp Pulse Resp BP Pulse Ox O2 Del Method 12/10/21 08:16 81 137/75 12/10/21 07:45 36.8 C 84 16 126/73 93 Room Air
[2021-12-11] MEDS: VANCOMYCIN HCL 750 MG in SODIUM CHLORIDE 0.9% 250 ML IV SCH (00:54)
[2021-12-11] MEDS: PANTOprazole 40 MG TAB PO SCH (07:41)
[2021-12-11] MEDS: COLESTIPOL HCL 1 GM TAB PO SCH (07:41)
[2021-12-11] MEDS: ROSUVASTATIN CALCIUM 5 MG TAB PO SCH (07:41)
[2021-12-11] MEDS: amLODIPine BESYLATE 5 MG TAB PO SCH (07:41)
[2021-12-11] MEDS: NAPROXEN 250 MG TAB PO SCH (07:41)
[2021-12-11 08:23] LABS: Creatinine Clr Calc Pharmacy 60.9 ml/min; Est GFR (African American) 87.7 ml/min; Est GFR (Non-African American) 75.7 ml/min
[2021-12-11] MEDS ORDERED: VANCOMYCIN HCL 1,000 MG in SODIUM CHLORIDE 0.9% 250 ML IV SCH (10:00)
--- NOTE | 2021-12-11 10:00 | Pharmacy Report ---
Pharmacy PK ABX Note - Date of Service December 11, 2021 - Assessment and Plan Assessment 12/11/21: * Vancomycin level obtained this morninmcg/mL, indicating that current regimen is suboptimal * Vancomycin dose adjusted for further dosing. * Blood cultures pending 12/10 * Ms Snyder is a 76 year old F receiving Vancomycin for treatment of RUE cellulitis. * PMH is significant for hx of breast CA s/p chemo/mastectomy/bilateral axilla lymph node excision (1995), chronic b/l UE lymphedema * Pt completed 14 days of therapy with Clindamycin as an outpatient. Initially, she had some improvement, however she reports onset of increased erythema and chills, for which she presented to the ER. * Blood cx pending. PCT unremarkable. Plan Vancomycin * Loading dose: 1500 mg IV x 1 * Maintenance dose: increase to 1000 mg IV every 12 hours * Regimen is predicted to achieve target AUC/EARL of 400-600 mg/L.hr * No further levels have been ordered at this time. If patient remains on vancomycin, will re-consider the need for additional levels in 1-2 days. Pharmacy will continue to follow and will adjust dose/frequency as necessary. Thank you. Pharmacy has transitioned to AUC monitoring for vancomycin. AUC/EARL is the preferred PK/PD target and is associated with decreased risk of nephrotoxicity compared to traditional trough targets.
--- NOTE | 2021-12-11 13:23 | Discharge Summary ---
Date of Service December 11, 2021 Admission HPI Per Admitting Provider Patient is 76 y/o F with PMH HTN, dyslipidemia, GERD, IBS, breast cancer s/p chemotherapy, mastectomy, bilateral axilla lymphnode excision in 1995, chronic bilateral upper extremity lymphedema presented to ER with c/o RUE erythema. She reports history recurrent cellulitis to [facility]. Reports erythema to RUE in March and May 2021 and was treated with Clindamycin with relief. Patient states 2 weeks ago noticed right upper arm erythema and started Clindamycin and completed 7 day course with improvement with only a very small area of erythema remaining to right upper arm. Her PCP called in another course of Clindamycin which she started on 12/02/21. She felt symptoms were improving however last night started with chills. Did not take temperature. Noticed entire right arm erythema. Baseline edema and denies any increased edema. Has chronic "heaviness" sensation of RUE but denies any significant discomfort. Denies any open areas, known injury or trauma or discharge from area. She did notice her right thumb had crack in skin today, she is unsure when this occurred and doesn't recall cutting herself. Her skin is very dry. Denies any known history MRSA. Denies history DVT. Denies diaphoresis, N/V/D/C, HERR, dizziness, syncope, vision changes, neck pain, CP, SOB, palpitations, cough, sore throat, choking, otalgia, rhinorrhea, abdominal pain, paresthesias, weakness, extremity weakness, other rashes, urinar y symptoms. In ER afebrile, vitals stable. Mild leukocytosis. Was started on vancomycin. Admission Exam Per Admitting Provider General: no distress, overweight Head: normocephalic, atraumatic Eyes: conjunctiva non-injected, anicteric ENT: normal inspection external ears, nose, mucous membranes moist Neck: supple, trachea midline Lungs: clear, no respiratory distress, no wheezing/rhonchi/rales CV: RRR, no murmur, no pretibial edema Abd: protuberant, normal BS, soft, non-tender Ext: no cyanosis, no calf tenderness; Bilateral upper extremities with chronic lymphedema. RUE: +diffuse dry skin, +erythema from proximal arm extending to wrist, +warmth to proximal arm, no significant tenderness to palpation. right thumb with noted dry skin with small fissure without discharge Neuro: A&O x 3, no focal deficits noted, normal affect Skin: as above in extremities, otherwise warm, dry Principal Diagnosis RUE cellulitis Discharge Exam GENERAL: Alert and oriented x3. NAD, on RA. HEENT: No pallor, no icterus. Pupils equal, round and reactive to light. Oral mucosa moist. NECK: No JVD, no neck masses. HEART: S1 and S2 heard. Regular rate and rhythm. No murmur, no gallop. RESPIRATORY SYSTEM: Normal AP diameter. No accessory muscle use. No wheezing, no crackles. ABDOMEN: Soft, bowel sounds present, nontender, no distention. CENTRAL NERVOUS SYSTEM: No facial droop. Speech is clear. Obeys simple commands. Moves extremities. EXTREMITIES: No edema, no erythema seen. RUE w/ chronic lymphedema, arm w/ almost resolved erythema, no warmth or tenderness Discharge Data Allergies Allergy/AdvReac Type Severity Reaction Status Date / Time Sulfa (Sulfonamide Allergy Mild Unknown rxn Verified 05/24/10 07:39 Antibiotics) Cephalosporins Allergy Unknown Verified 03/28/09 04:25 Penicillins Allergy Unknown Verified 03/28/09 04:25 oxycodone AdvReac Mild NAUSEA Verified 03/28/09 04:25 Consultations 12/09/21 13:06 ED Decision to Admit Stat Ordered Studies 12/09/21 13:45 US venous doppler UE RT Urgent Hospital Course (1) Cellulitis of right upper extremity: Plan 76 y/o F with PMH HTN, dyslipidemia, GERD, IBS, breast cancer s/p chemotherapy, mastectomy, bilateral axilla lymph node excision in 1995, chronic bilateral upper extremity lymphedema presented to ER 12/09 with c/o RUE erythema x 2 weeks initial improvement with Clindamycin however 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 No known h/o MRSA. She was managed for the following: (1) Cellulitis of right upper extremity: In ER afebrile, vitals stable. WBC:11K. Normal lactate and procalcitonin. In ER was started on vancomycin admitting blood cultures pending RUE venous doppler negative for dvt Improving RU E pain and erythema per patient 14 day course Clindamycin with initial improvement then reported onset of increased erythema and chills last night. With recent antibiotic use and allergy profile will continue vancomycin, plan for doxycycline and levaquin upon discharge. (2) Hypomagnesemia: Plan: Admitting magnesium: 1.6 Replace and monitor Other chronic medical conditions: HTN/HLD/breast cancer/chronic acquired lymphedema BUE [reports tried compression wraps and lymphedema pump in the past with minimal relief]/IBS/GERD -->> continue with/resume home meds as and when able. DVT prophylaxis: Lovenox subcu Full code Patient being discharged home with following instruction at the point of discharge: Follow-up with your primary care physician within a week time and likely you will need blood test CBC/CMP/magnesium level. You will be discharged on antibiotic to complete the course, probiotics will be added. Take your medications as prescribed. Home Health Attestation I certify that this patient is under my care and that I, or a physicians assistant hvac mechanic working with me, had a face to-face encounter that meets the home health [id number] encounter requirements with this patient. The encounter with the patient was in whole, or in part, for the following medical condition, which is the primary reason for home health care (list medical condition): I certify that, based on my findings, the following services are medically necessary home health services: My clinical findings support the need for the above services because: Further, I certify that my clinical findings support that this patient is homebound (i.e. absences from home require considerable and taxing effort and are for medical reasons or scientologist services or infrequently or of short duration when for other reasons) because: Certification for Home Health Services: Based on the above findings, I certify that this patient is confined to the home and needs intermittent [facility] care, physical therapy and/or speech therapy or continues to need occupational therapy. The patient is under my care, and I have initiated the establishment of the plan of care. This patient will be followed by a physician who will periodically review the plan of care. Total Time Total Time Spent Total Time Spent (In Minutes): 45 Discharge Plan Discharge Items Patient Disposition: Home - Self-Care Reason For Visit: RUE CELLULITIS Discharge Diagnosis: RUE cellulitis Activity: Resume your previous activity Non-emergency contact: Primary Care Provider Call non-emergency contact if: you have any medication questions, your pain is not controlled and your temperature is above 101.5 Follow-up/Referrals: Rogelio Cespedes, [Primary Care Provider] - Diet: Heart Healthy Addtl Attending Provider Instructions: Follow-up with your primary care physician within a week time and likely you will need blood test CBC/CMP/magnesium level. You will be discharged on antibiotic to complete the course, probiotics will be added. Take your medications as prescribed. Pending Studies at Discharge: Yes (Admitting blood culture final results.) Stand-Alone Forms: My [facility] Fliiby, Smoking Cessation Medications and DC Order Prescriptions: New doxycycline hyclate 100 mg tablet 100 mg PO BID 12 Days Qty: 24 0RF levofloxacin 750 mg tablet 750 mg PO DAILY 7 Days Qty: 7 0RF Probiotic 3 billion cell capsule 3,000 mmu cells PO DAILY 14 Days Qty: 14 0RF Rx Instructions: administer with a meal Continued amlodipine 5 mg tablet 5 mg PO DAILY ascorbic acid (vitamin C) [Vitamin C] 500 mg Tablet 500 mg PO DAILY meclizine 25 mg tablet 25 mg PO TID PRN (Reason: Dizziness) omeprazole 20 mg capsule,delayed release(DR/EC) 20 mg PO BID colestipol 1 gram tablet 2 g PO BID naproxen 500 mg tablet 500 mg PO BID cholecalciferol (vitamin D3) [Vitamin D3] 10 mcg (400 unit) Capsule 10 mcg PO DAILY rosuvastatin 5 mg tablet 5 mg PO DAILY Discontinued clindamycin HCl 300 mg capsule 300 mg PO QID Discharge Orders: Discharge Order (Routine); Ordered 12/11/21 Ordered By: Santos Dill Admission Data Admit Date/Time: 12/09/21 13:39 Attending Provider: Santos Dill Admit Provider: Ximena Valles Primary Care Provider: Rogelio Cespedes Other Providers: Ximena Valles
== END 2021-12-11 13:58 | disposition home or self-care (01) | DRG 603 ==
LOC: ED 10:40 → 3W 13:39 → SUATTDRO 13:39 → 3W 16:41